=== PATIENT | male | born 1955 | race Caucasian/White ===

== ENCOUNTER → 2024-07-18 | Outpatient (CLI) | payer MEDICARE | LOC: M PAIN 08:30 | PROVIDERS: ATTEND Anesthesiology | DX: M96.1 Postlaminectomy syndrome, not elsewhere classified (principal); E11.42 Type 2 diabetes mellitus with diabetic polyneuropathy; M54.16 Radiculopathy, lumbar region; Z79.84 Long term (current) use of oral hypoglycemic drugs; Z79.899 Other long term (current) drug therapy; Z88.8 Allergy status to other drugs, medicaments and biological substances ==